=== PATIENT | female | born 2000 | race Caucasian/White ===

== ENCOUNTER 2021-12-31 09:52 | Inpatient (IN) | payer MEDICAID ==
[2021-12-31] VITALS (23 sets, daily range): BP systolic 104–145; BP diastolic 56–90; PULSE 70–95; TEMP 98–98.7
[~2021-12-31] VITALS: Ht 157.5 cm; Wt 112.3 kg
--- NOTE | 2021-12-31 10:00 | NUR ---
Pt arrived on unit via wheelchair escorted by boyfriend and with concerns for possible ROM this morning. Pt reports feeling a "gush" of fluid this morning at 0830, also reports occasional contractions, denies any vaginal bleeding and reports normal movement. EFM and toco monitors started. Vital signs WNL. SVE by this RN / with positive amnio-trace. Dr Hatch notified of pt's arrival. See physician notification for details.
[2021-12-31] MEDS ORDERED: LEXAPRO 10MG10 MG PO (10:25)
--- NOTE | 2021-12-31 11:00 | NUR ---
1100- Pt report received from RYDER Osei. This RN assumes care at this time.
[2021-12-31 11:08] LABS: BASO # 0.1 K/mm3 (0.0-0.2); BASO % 0.6 % (0.0-2.0); EOS # 0.1 K/mm3 (0.0-0.7); EOS % 1.3 % (0.0-4.0); GRAN # 5.6 K/mm3 (1.4-6.5); GRAN % 70.3 % (42.2-75.2); HEMOGLOBIN 11.8 g/dl (12.5-16.0); LYMPH # 1.7 K/mm3 (1.2-3.4); LYMPH % 21.1 % (20.0-51.0); MEAN CELL VOLUME 83 fl (80.0-100.0); MEAN CORPUSCULAR HEMOGLOBIN 27 pg (27-31); MEAN CORPUSCULAR HGB CONC 33 g/dl (33.0-37.0); MEAN PLATELET VOLUME 11.6 fl (7.4-10.4); MONO # 0.5 K/mm3 (0.1-0.6); MONO % 6.3 % (1.7-9.3); PLATELET COUNT 210 K/mm3 (130-400); RED BLOOD COUNT 4.33 M/mm3 (4.10-5.30); REDCELL DISTRIBUTION WIDTH-CV 14.6 % (11.5-14.5)
--- NOTE | 2021-12-31 12:05 | NUR ---
1205- PharmacistSacha, called to report Pt receiving Vancomicin IV, reports hands and face "feel like they are on fire." Infusion stopped. Sacha reports that is considered a hystamine reaction, slow infusion to 125ml/hr, may give Benadryl 25mg PO. Will call MD for orders.
--- NOTE | 2021-12-31 13:30 | NUR ---
1307- EFM and TOCO off. Pt up to void. 1316- Pt sitting on side of bed for epidural placement. JORGE Hensley at bedside. 1321- Single shot by COLOR TECHNICIAN. 1323- Test dose by COLOR TECHNICIAN, see anesthesia record. 1327- Pt assisted to semi-fowlers with WL. EFM and TOCO adjusted.
[2021-12-31 14:18] LABS: TRICYCLIC ANTIDEPRESS URINE NEGATIVE
--- NOTE | 2021-12-31 15:00 | NUR ---
1500- Pt calls RN to bedside, crying due to intense vaginal pressure, SVE complete/+1. Pt able to calm with reassurance.
--- NOTE | 2021-12-31 15:16 | NUR ---
1510- Dr Roles at bedside. Pt and room prepped for delivery. Molly, nursery RN and orientee at bedside. 1513- Pt begins pushing with [facility]. 1516- of viable female , to mother's abd, tended to by nursery RN. Cord blood obtained. 1519- Spontaneous delivery of placenta. Pitocin started at 333ml/hr. Fundus massaged by MD. No repair required. Pericare completed. Clean chux under Pt and Ice pack to perinuem. Pt tolerated well.
--- NOTE | 2021-12-31 18:30 | NUR ---
Report recieved. Resting in room with baby and support person.
--- NOTE | 2021-12-31 19:00 | NUR ---
POC reviewed. Whiteboard updated. Holding infant. Questions invited and answered.
[2022-01-01 00:10] VITALS: BP 101/44; PULSE 71; TEMP 98.6
[2022-01-01 09:01] VITALS: BP 110/63; PULSE 72; TEMP 98.1
--- NOTE | 2022-01-01 11:10 | NUR ---
RN INTO PATIENT ROOM WITH BREASTPUMP. PT INFORMED RN SHE DECIDED THEY ARE ONLY GOING TO FORMULA FEED AND NO LONGER WANTED TO PUMP. RN VERBALIZED IF PT CHANGES HER MIND SHE WILL BRING THE BREASTPUMP TO PT.
--- NOTE | 2022-01-01 13:05 | NUR ---
structural worker met with patient after foam dispenser had concerns over baby's lab values. Consult placed. SHALONDA met with patient. This is her third baby, and her a current partners second child. Vilma reports that she has all needs at home to care of baby safely including a crib and car seat. FOB off unit during interaction but observed FOB in nursery earlier in the day learning bathing cares from RN. Patient is planning on formula feeding baby but expressed concerns over the formula shortage. She is had WIC established with her older children and is planning on adding baby. Educated patient to reach out to them if she can't find formula or reach out to her foam dispenser. [facility] Resource Guide provided as well. SHALONDA addressed MOB THC use. She states she had a medical marijuana card in [place] and was utilizing it for her anxiety and depression. She opens up about her time in foster care and lack of trust in therapists, but is will to get MH established through [facility]. She reports started her on Lexapro during and their plan is to increase the dose. SHALONDA addressed the patient's recurrent STI's. She states that she and her partner are in an "open relationship" and he is doing what he needs to do to get cleared and she is also on antibiotics.
[2022-01-01 17:23] VITALS: BP 123/77; PULSE 72; TEMP 98.1
--- NOTE | 2022-01-01 19:00 | NUR ---
Updated whiteboard and reviewed POC. Educated on bottle feeding frequency. Questions invited.
[2022-01-01 19:35] VITALS: BP 120/75; PULSE 84; TEMP 98.2
[2022-01-02 09:04] VITALS: BP 124/78; PULSE 69; TEMP 98
[2022-01-02] MEDS ORDERED: IBU800 M1 PO (10:34)
--- NOTE | 2022-01-02 12:58 | NUR ---
DISCHARGE INSTRUCTIONS PROVIDED. PATIENT CHANGED TO BOARDER STATUS, INFANT TO RECEIVE PHOTOTHERAPY. QUESTIONS INVITED AND ANSWERED. UNDERSTANDING VERBALIZED.
== END 2022-01-02 13:01 | disposition home or self-care (01) | DRG 807 ==
LOC: LDRO 09:52 → OB 10:36 → LDR 10:36 → OB 17:45
PROVIDERS: ADMIT Obstetrics & Gynecology
PROC: 10E0XZZ Delivery of Products of Conception, External Approach (ICD-10-PCS; principal; 2021-12-31)
DX: O24.420 Gestational diabetes mellitus in childbirth, diet controlled (principal); Z37.0 Single live birth; O99.343 Other mental disorders complicating pregnancy, third trimester; F32.A Depression, unspecified; F41.9 Anxiety disorder, unspecified; Z3A.37 37 weeks gestation of pregnancy; Z88.0 Allergy status to penicillin
CPT/HCPCS: J2590; J3370; J7050; J7120